=== PATIENT | male | born 1975 | race Caucasian/White ===

== ENCOUNTER 2017-10-08 15:08 | Inpatient (IN) | payer MEDICAID ==
[2017-10-08] MEDS ORDERED: Ondansetron 4 MG/2 ML SDV IVPUSH ONE (15:28)
[2017-10-08] MEDS ORDERED: Famotidine 20 MG/2 ML SDV IVPUSH ONE (15:28)
[2017-10-08] MEDS ORDERED: Pantoprazole 40 MG Vial IVPUSH ONE (15:28)
[2017-10-08] MEDS ORDERED: Lactated Ringers 1,000 ML IV ONE (15:28)
--- NOTE | 2017-10-08 15:28 | EDM.PDOC ---
ED HPI GENERAL MEDICAL PROBLEM - General Chief Complaint: Abdominal Pain Stated Complaint: Right abdomenal pain Time Seen by Provider: 10/08/17 15:20 Source of Information: Reports: Patient, Family (, son), Other (Limited records from [facility] in [place]). Denies: Old Records (No [facility] records available) History Limitations: Reports: No Limitations - History of Present Illness INITIAL COMMENTS - FREE TEXT/NARRATIVE: The patient was brought to the emergency room via private automobile by his for evaluation of 8-9/10 right upper quadrant sharp cramping abdominal pain similar to previous episodes with symptoms present on an intermittent basis during the last 3 weeks. The patient was briefly evaluated by Stephanie Alexis PA-C, at [facility] in [place], with no treatment or significant evaluation at clinic prior to transfer to our emergency room for further treatment. He does have a known history of distant pancreatitis and a pseudocyst as below. The patient has not taken any stomach medications for his symptoms to this point. Note that the patient did eat some pizza at noon yesterday with repeat piece of pizza later that afternoon and beginning symptoms at about 16:00 hours on that day with no known previous history of fatty food intolerance. He did have worsening symptoms since about noon today, including recurrent emesis since that time. The patient did take 650 mg of Tylenol shortly prior to onset of these of emeses. No recent history of other abdominal pain, heartburn, diarrhea, melena, gross hematochezia, etc. with normal bowel movement yesterday by his history. He denies any recent colic, gross hematuria, or other UTI symptoms. The patient also denies any recent fever , cough, wheezing, dyspnea, etc.. The patient denies any chest pain/pressure, heart flutter, dizziness, orthostasis, orthopnea, diaphoresis, paresthesias, recent decreased exercise tolerance, or any other anginal-type symptoms. The patient did have 2 beers yesterday evening. Onset: Gradual Onset Date: 10/07/17 Onset Time: 16:00 Duration: Week(s): (As above), Getting Worse, Intermittent Location: Reports: Abdomen. Denies: Head, Face, Neck, Chest, Back, Pelvis, Upper Extremity, Left, Upper Extremity, Right, Lower Extremity, Left, Lower Extremity, Right, Generalized, Radiates to Quality: Reports: Same as Previous Episode, Sharp, Stabbing Severity: Moderate Improves with: Reports: None Worsens with: Reports: None Context: Reports: Other (As above) Associated Symptoms: Reports: Nausea/Vomiting. Denies: Confusion, Chest Pain, Cough, cough w sputum, Diaphoresis, Fever/Chills, Headaches, Loss of Appetite, Malaise, Rash, Seizure, Shortness of Breath, Syncope, Weakness Treatments PUBLIC HEALTH OFFICER: Reports: Acetaminophen Right Abdominal Pain Score (Numeric/FACES): 9 - Related Data Allergies Allergy/AdvReac Type Severity Reaction Status Date / Time azithromycin [From Zithromax] Allergy Bleeding Verified 10/08/17 15:10 Home Meds: Home Meds Acetaminophen [Tylenol] 650 mg PO Q4HR PRN 10/08/17 [History] Ibuprofen 600 mg PO Q6HR 10/08/17 [History] Past Medical History HEENT History: Reports: Hard of Hearing, Impaired Vision, Other (See Below). Denies: Allergic Rhinitis, Glaucoma, Macular Degeneration, Retinal Detachment Other HEENT History: 10% hearing loss in the right ear with no current therapy. Patient does wear reading glasses Cardiovascular History: Reports: None. Denies: Afib, Aneurysm, Arrhythmia, Blood Clots/VTE/DVT, CAD, Heart Murmur, High Cholesterol, Hypertension, Syncope Respiratory History: Reports: None, Intubation, Previous. Denies: Asthma, Bronchitis, Recurrent, COPD, Intubation, Difficult, PE, Pneumothorax, Sleep Apnea, TB Gastrointestinal History: Reports: GERD, Pancreatitis, Other (See Below). Denies: Celiac Disease, Cholelithiasis, Chronic Constipation, Chronic Diarrhea, Fecal Incontinence, Gastritis, GI Bleed, Hepatitis, Helicobacter Pylori, Inflammatory Bowel Disease, Irritable Bowel Syndrome, Jaundice Other Gastrointestinal History: jaundice. Pancreatitis with pancreatic pseudocyst in about 2016 with previous referral for following up at the [facility], however this was apparently not needed based on communication with their providers in [place]? Previous history of possible lactose intolerance nonproblematic at this time Genitourinary History: Reports: None. Denies: Acute Renal Failure, BPH, Chronic Renal Insuffiency, Renal Calculus, STD, Urinary Incontinence, UTI, Recurrent Musculoskeletal History: Reports: Arthritis, Back Pain, Chronic, Fracture, Osteoarthritis, Other (See Below). Denies: Amputation, Gout, Neck Pain, Chronic , RA, SLE Other Musculoskeletal History: Left-sided rib fracture in about 2007 Neurological History: Reports: None. Denies: Cerebral Aneurysms, Concussion, CVA, Headaches, Chronic, Head Trauma, Migraines, MS, Parkinson's, Seizure, TIA Psychiatric History: Denies: Abuse, Victim of, ADD, ADHD, Addiction, Anxiety, Depression, Psych Hospitalization(s), Psychosis, PTSD, Suicide Attempt, Suicidal Ideation Endocrine/Metabolic History: Denies: Diabetes, Type I, Diabetes, Type II, Diabetes Mellitus, Type 3c, Hypothyroidism, IDDM Hematologic History: Reports: None. Denies: Anemia, Blood Transfusion(s) Immunologic History: Reports: None. Denies: AIDS, HIV, SLE Oncologic (Cancer) History: Denies: Basal Cell Carcinoma, Hodgkin's Lymphoma, Leukemia, Lymphoma, Malignant Melanoma, Non-Hodgkin's Lymphoma, Squamous Cell Carcinoma Dermatologic History: Denies: Eczema, Psoriasis - Infectious Disease History Infectious Disease History: Reports: Chicken Pox. Denies: C-Difficile, Measles , Meningitis, Mononucleosis, MRSA, Mumps, Pertussis (Whooping Cough), Rheumatic Fever, Rubella, Scarlet Fever, Shingles, TB, VRE - Past Surgical History Head Surgeries/Procedures: Reports: None HEENT Surgical History: Reports: Oral Surgery, Other (See Below). Denies: Adenoidectomy, Eye Surgery, Laser Surgery, LASIK, Myringotomy w Tube(s), Naso- Sinus Surgery, Tonsillectomy Other HEENT Surgeries/Procedures: Teeth extractions Cardiovascular Surgical History: Reports: None. Denies: Varicose, Vascular Surgery Respiratory Surgical History: Reports: None. Denies: Thoracentesis GI Surgical History: Reports: EGD, Hernia, Inguinal, Other (See Below). Denies : Appendectomy, Cholecystectomy, Colonoscopy, Hernia, Abdominal, Hernia Repair/ Other Other GI Surgeries/Procedures: Multiple previous EGDs with last EGD/EUS evaluation on 12/06/15. Right inguinal hernia repair at age 5 Male Surgical History: Reports: Circumcision, Other (See Below). Denies: Vasectomy Other Male Surgeries/Procedures: Circumcision as an infant Endocrine Surgical History: Reports: None. Denies: Thyroid Biopsy Neurological Surgical History: Denies: C-Spine, Discectomy, Laminectomy, Lumbar Spine, Sacral Spine, Scoliosis, Thoracic Spine, Vertebroplasty Musculoskeletal Surgical History: Denies: Arthroscopic Procedure, Carpal Tunnel , Ganglion Cyst, Joint Replacement, ORIF, Shoulder Surgery Oncologic Surgical History: Reports: None Dermatological Surgical History: Reports: None - Past Imaging History Past Imaging History: Reports: CAT Scan (CT scan of the abdomen and pelvis in about 2016), MRI (MRI of the abdomen and pelvis date unknown), Ultrasound ( Multiple previous abdominal ultrasounds date unknown) Social & Family History - Family History HEENT: Reports: None. Denies: Glaucoma, Macular Degeneration, Retinal Detachment Cardiac: Reports: CAD, DC, Other (See Below). Denies: Afib, Aneurysm, Arrhythmia, Blood Clots/VTE/DVT, Bypass, High Cholesterol, Hypertension, Pacemaker, Stent, Syncope Other Cardiac Family History: A paternal uncle with fatal DC at age 45 Respiratory: Reports: None. Denies: Asthma, COPD, PE, Pneumothorax, Sleep Apnea GI: Reports: GI bleed, PUD, Other (See Below). Denies: Celiac Disease, Cholelithiasis, Chronic Constipation, Chronic Diarrhea, Colon Polyps, GERD, Hepatitis, Inflammatory Bowel Disease, Irritable Bowel Syndrome, Pancreatitis Other GI Family History: Brother with upper GI bleed secondary to peptic ulcer disease. Son with history of H. pylori. : Reports: Renal Calculus, Other (See Below). Denies: Dialysis, Renal Disease /Insufficiency Other Family History: Father with urolithiasis OBGYN: Reports: None. Denies: Endometriosis, Recurrent Spontaneous Musculoskeletal: Reports: Arthritis, Osteoarthritis, SLE. Denies: Gout, RA Other Musculoskeletal Family History: Father with lupus Neurological: Reports: Alzheimers Disease, Other (See Below). Denies: Cerebral Aneurysms, CVA, Dementia, Migraines, MS, Parkinson's, Seizure, TIA Other Neurological Family History: Paternal grandfather with organic brain syndrome Psychiatric: Reports: None. Denies: Abuse, Victim of, ADD, ADHD, Anxiety, Depression, Psych Hospitalization(s), PTSD, Suicide Attempt Endocrine/Metabolic: Reports: Diabetes, type II. Denies: Diabetes, Type I, Diabetes Mellitus, Type 3c, Hypothyroidism, IDDM Other Endocrine/Metabolic Family History: Paternal grandfather with AODM Hematologic: Reports: SLE (As above). Denies: Anemia, Transfusion Reaction Immunologic: Reports: SLE (As above). Denies: AIDS, HIV Dermatologic: Reports: None. Denies: Eczema, Psoriasis Oncologic: Reports: Other (See Below). Denies: Colon, Hodgkin's Lymphoma, Leukemia, Lymphoma, Non-Hodgkin's Lymphoma, Prostate, Skin Other Oncologic Family History: Mother with fatal unknown type of cancer in her 50s - Tobacco Use Smoking Status *Q: Current Every Day Smoker Tobacco Use Within Last Twelve Months: Cigarettes Years of Tobacco use: 26 Packs/Tins Daily: 1 Used Tobacco, but Quit: No Smoking Cessation Information Provided To Patient: Yes Second Hand Smoke Exposure: Yes Source of Second Hand Smoke Exposure: smokes Second Hand Smoke Education Provided: Yes - Caffeine Use Caffeine Use: Reports: Coffee (2 cups per day), Energy Drinks (1 can per week), Tea (3 bottles per day). 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 ED EXAM, GI/ABD - Physical Exam Exam: See Below Exam Limited By: No Limitations General Appearance: Alert, WD/WN, No Apparent Distress Eyes: Bilateral: Normal Appearance (No nystagmus. No scleral icterus), EOMI ( PERRLA) Ears: Normal External Exam, Normal Canal, Hearing Grossly Normal, Normal TMs Nose: Normal Inspection, Normal Mucosa, No Blood Throat/Mouth: Normal Inspection, Normal Lips, Normal Teeth (Multiple missing teeth), Normal Gums, Normal Oropharynx, Normal Voice, No Airway Compromise. No : Dysphagia, Perioral Cyanosis Head: Atraumatic, Normocephalic. No: Facial Swelling, Facial Tenderness, Sinus Tenderness Neck: Normal Inspection, Supple, Non-Tender, Full Range of Motion. No: Carotid Bruit, Lymphadenopathy (L), Lymphadenopathy (R), Thyromegaly Respiratory/Chest: No Respiratory Distress, Lungs Clear, Normal Breath Sounds, No Accessory Muscle Use, Chest Non-Tender. No: Pleural Rub, Retractions Cardiovascular: Normal Peripheral Pulses, Regular Rate, Rhythm, No Edema, No Gallop, No JVD, No Murmur, No Rub. No: Gallop/S3, Gallop/S4, Friction Rub GI/Abdominal Exam: Normal Bowel Sounds, No Organomegaly, No Distention, No Abnormal Bruit, No Mass, Pelvis Stable, Tender (Moderate right upper quadrant palpation pain). No: Guarding, Rebound (Male) Exam: Deferred Rectal (Males) Exam: Normal Exam, Normal Rectal Tone, Prostate Normal, Heme - Stool. No: BPH, Tenderness (No Juan space tenderness) Back Exam: Normal Inspection, Full Range of Motion. No: CVA Tenderness (L), CVA Tenderness (R), Muscle Spasm Extremities: Normal Inspection, Normal Range of Motion, Non-Tender, No Pedal Edema, Normal Capillary Refill. No: Ray's Sign Neurological: Alert, Oriented, CN II-XII Intact, Normal Cognition, Normal Gait, Normal Reflexes, No Motor/Sensory Deficits Psychiatric: Normal Affect, Normal Mood Skin Exam: Warm, Dry, Intact, Normal Color, No Rash, Stud(s) (tongue), Tattoo(s ) (Multiple). No: Diaphoretic, Ecchymosis, Lymphangitis, Petechiae, Wound/ Incision Lymphatic: No Adenopathy Course - Vital Signs Last Recorded V/S: Last Vital Signs Temp 37.1 C 10/08/17 15:26 Pulse 80 10/08/17 15:26 Resp 20 10/08/17 15:26 BP 137/83 10/08/17 15:26 Pulse Ox 100 10/08/17 15:26 Vital Signs - 24 hr 10/08/17 10/08/17 15:18 15:26 Temperature [ 37.1 C 37.1 C Temporal] Pulse, 89 80 Peripheral [ Right Pulse Oximetry] Respiratory 20 20 Rate Blood Pressure 130/82 137/83 [Right Upper Arm] O2 Sat by Pulse 100 100 Oximetry - Orders/Labs/Meds Orders: Active Orders 24 hr Category Date Time Status Peripheral IV Care [RC] . DIRECTED Care 10/08/17 15:30 Active Nothing Per Oral Diet [DIET] Diet 10/08/17 Breakfast Active Abdomen Series w Chest 1V [CR] Stat Exams 10/08/17 15:29 Ordered CULTURE URINE [RM] Stat Lab 10/08/17 15:29 Ordered H PYLORI STOOL ANTIGEN [MREF] Urgent Lab 10/08/17 15:29 Ordered UA W/MICROSCOPIC [URIN] Urgent Lab 10/08/17 15:29 Ordered Sodium Chloride 0.9% [Saline Flush] Med 10/08/17 15:28 Active 10 ml FLUSH ASDIRECTED PRN Obtain Past Medical Record [OM.PC] Urgent Oth 10/08/17 15:29 Active Peripheral IV Insertion Adult [OM.PC] Stat Oth 10/08/17 15:29 Ordered Resuscitation Status Stat Resus Stat 10/08/17 15:28 Ordered Medication Orders Sodium Chloride (Saline Flush) 10 ml FLUSH ASDIRECTED PRN PRN Reason: Keep Vein Open Last Admin: 10/08/17 15:42 Dose: 10 ml Admin: 10/08/17 15:37 Dose: 10 ml Labs: Laboratory Tests 10/08/17 10/08/17 10/08/17 Range/Units 15:30 15:30 15:30 WBC 13.9 H (4.0-10.2) K/uL RBC 5.27 (4.33-5.41) M/uL Hgb 16.8 (13.1-16.8) g/dL Hct 47.4 (39.0-49.0) % MCV 89.9 (84.0-98.0) fL MCH 31.9 (28.2-33.3) pg MCHC 35.4 (31.7-36.0) g/dL RDW 11.9 (11.2-14.1) % Plt Count 278 (150-350) K/uL Neut % (Auto) 79.5 (45.0-80.0) % Lymph % (Auto) 9.8 L (10.0-50.0) % [place] % (Auto) 7.8 (2.0-14.0) % Eos % (Auto) 2.8 (0.0-5.0) % Baso % (Auto) 0.1 (0.0-2.0) % Neut # (Auto) 11.02 H (1.40-7.00) K/uL Lymph # (Auto) 1.36 (0.50-3.50) K/uL [place] # (Auto) 1.08 H (0.00-1.00) K/uL Eos # (Auto) 0.39 (0.00-0.50) K/uL Baso # (Auto) 0.02 (0.00-0.20) K/uL PT 10.1 (9.8-11.7) SEC INR 0.9 APTT 26.0 (22.1-29.8) SEC Sodium (136-145) mmol/L Potassium (3.5-5.1) mmol/L Chloride (98-107) mmol/L Carbon Dioxide (21.0-32.0) mmol/L BUN (7-18) mg/dL Creatinine (0.51-1.17) mg/dL Est Cr Clr Drug Dosing mL/min Estimated GFR (MDRD) mL/min Glucose (74-106) mg/dL Lactic Acid (0.4-2.0) mmol/L Uric Acid (2.6-7.2) mg/dL Calcium (8.5-10.1) mg/dL Magnesium (1.8-2.4) mg/dL Total Bilirubin (0.2-1.0) mg/dL AST (15-37) U/L ALT (12-78) U/L Alkaline Phosphatase (46-116) IU/L Total Protein (6.4-8.2) g/dL Albumin (3.4-5.0) g/dL Amylase 917 H (25-115) U/L Lipase (73-393) U/L Ethyl Alcohol (0.000-0.080) g/dL 10/08/17 10/08/17 Range/Units 15:30 15:30 WBC (4.0-10.2) K/uL RBC (4.33-5.41) M/uL Hgb (13.1-16.8) g/dL Hct (39.0-49.0) % MCV (84.0-98.0) fL MCH (28.2-33.3) pg MCHC (31.7-36.0) g/dL RDW (11.2-14.1) % Plt Count (150-350) K/uL Neut % (Auto) (45.0-80.0) % Lymph % (Auto) (10.0-50.0) % [place] % (Auto) (2.0-14.0) % Eos % (Auto) (0.0-5.0) % Baso % (Auto) (0.0-2.0) % Neut # (Auto) (1.40-7.00) K/uL Lymph # (Auto) (0.50-3.50) K/uL [place] # (Auto) (0.00-1.00) K/uL Eos # (Auto) (0.00-0.50) K/uL Baso # (Auto) (0.00-0.20) K/uL PT (9.8-11.7) SEC INR APTT (22.1-29.8) SEC Sodium 138 (136-145) mmol/L Potassium 3.9 (3.5-5.1) mmol/L Chloride 99 (98-107) mmol/L Carbon Dioxide 27.3 (21.0-32.0) mmol/L BUN 5 L (7-18) mg/dL Creatinine 0.75 (0.51-1.17) mg/dL Est Cr Clr Drug Dosing 123.03 mL/min Estimated GFR (MDRD) > 60 mL/min Glucose 116 H (74-106) mg/dL Lactic Acid 1.0 (0.4-2.0) mmol/L Uric Acid 4.2 (2.6-7.2) mg/dL Calcium 9.6 (8.5-10.1) mg/dL Magnesium 1.7 L (1.8-2.4) mg/dL Total Bilirubin 0.6 (0.2-1.0) mg/dL AST 63 H (15-37) U/L ALT 106 H (12-78) U/L Alkaline Phosphatase 101 (46-116) IU/L Total Protein 8.4 H (6.4-8.2) g/dL Albumin 4.1 (3.4-5.0) g/dL Amylase (25-115) U/L Lipase 5136 H (73-393) U/L Ethyl Alcohol 0.000 (0.000-0.080) g/dL Microbiology 10/08/17 15:58 Stool Occult Blood (SHAKILA) - Final Stool / Feces NEGATIVE OCCULT BLOOD Meds: Medications Generic Name Dose Route Start Last Admin Trade Name Salq PRN Reason Stop Dose Admin Sodium Chloride 10 ml 10/08/17 15:28 10/08/17 15:42 Saline Flush FLUSH 10 ml ASDIRECTED PRN Administration Keep Vein Open Discontinued Medications Generic Name Dose Route Start Last Admin Trade Name Nanci PRN Reason Stop Dose Admin Famotidine 40 mg 10/08/17 15:28 10/08/17 15:40 Pepcid IVPUSH 10/08/17 15:29 40 mg ONETIME ONE Administration Lactated Ringer's 1,000 mls @ 999 mls/hr 10/08/17 15:28 10/08/17 15:45 Ringers, Lactated IV 10/08/17 16:28 999 mls/hr .BOLUS ONE Administration Ondansetron HCl 4 mg 10/08/17 15:28 10/08/17 15:37 Zofran IVPUSH 10/08/17 15:29 4 mg ONETIME ONE Administration Pantoprazole Sodium 40 mg 10/08/17 15:28 10/08/17 15:42 Protonix Iv IVPUSH 10/08/17 15:29 40 mg ONETIME ONE Administration - Radiology Interpretation Free Text/Narrative:: Acute abdominal series was normal with no evidence of cardiomegaly, CHF, pulmonary infiltrates, pneumothorax, increased bowel gaseous pattern, free air, fluid levels, ileus, or obstruction Departure - Departure Time of Disposition: 16:40 Disposition: Admitted As Inpatient 65 Condition: Fair Clinical Impression: Pancreatitis, Elevated LFTs, Peptic reflux disease, Osteoarthritis, Hypomagnesemia, Tobacco abuse counseling, Hyperglycemia - Discharge Information Referrals: Stephanie Resendiz PA-C [Primary Care Provider] - Forms: ED Department Discharge Care Plan Goals: See plan - Problem List & Annotations (1) Pancreatitis SNOMED Code(s): 72385685 Code(s): K85.90 - ACUTE PANCREATITIS WITHOUT NECROSIS OR INFECTION, UNSP Status: Acute Priority: High Current Visit: Yes Onset Date: 10/08/17 Annotation/Comment:: Recurrence of his previous pancreatitis as above with previous history of pseudocyst. Improvement of patient's symptoms with high- dose IV Pepcid and IV Protonix in the emergency room. Patient will be kept nothing by mouth with repeat blood work in the a.m. with possible additional CT scan of the abdomen and pelvis depending on his clinical course as below. Also consider possible NG tube therapy depending on his clinical course. GI/surgical consultation as needed. Various therapeutic options were discussed with the patient and his , who are requesting admission to this facility for now. Note some mild leukocytosis at time of admission with IV Cipro and IV Flagyl to be started as GI prophylaxis. Qualifiers: Chronicity: acute Pancreatitis type: other Acute pancreatitis complication: unspecified Qualified Code(s): K85.80 - Other acute pancreatitis without necrosis or infection (2) Elevated LFTs SNOMED Code(s): 911427831 Code(s): R79.89 - OTHER SPECIFIED ABNORMAL FINDINGS OF BLOOD CHEMISTRY Status: Acute Priority: High Current Visit: Yes Onset Date: 10/08/17 Annotation/Comment:: Despite history of distant pancreatitis from a pancreatic pseudocyst no apparent previous history of LFTs elevation. Fasting lipid panel to be conducted in the a.m. Avoid excessive Tylenol and NSAIDs for now secondary to his LFTs elevation. His total bilirubin is normal. Abdominal ultrasound in the a.m. with possible substitution with CT scan of the abdomen and pelvis depending on his clinical course and a.m. blood work. Coagulation studies also to be conducted in the a.m. (3) Hyperglycemia SNOMED Code(s): 23150733 Code(s): R73.9 - HYPERGLYCEMIA, UNSPECIFIED Status: Acute Priority: Medium Current Visit: Yes Onset Date: 10/08/17 Annotation/Comment:: Glycosylated hemoglobin in the a.m. with no previous history of diabetes (4) Hypomagnesemia SNOMED Code(s): 779251943 Code(s): E83.42 - HYPOMAGNESEMIA Status: Acute Priority: Medium Current Visit: Yes Onset Date: 10/08/17 Annotation/Comment:: Consider magnesium oxide supplementation later in hospitalization (5) Osteoarthritis SNOMED Code(s): 841930969 Code(s): M19.90 - UNSPECIFIED OSTEOARTHRITIS, UNSPECIFIED SITE Status: Chronic Priority: Medium Current Visit: Yes Annotation/Comment:: Stable by history with no recent excessive NSAIDs, etc. use Qualifiers: Osteoarthritis location: multiple joints Osteoarthritis type: primary Qualified Code(s): M15.0 - Primary generalized (osteo)arthritis (6) Peptic reflux disease SNOMED Code(s): 16604263 Code(s): K21.9 - GASTRO-ESOPHAGEAL REFLUX DISEASE WITHOUT ESOPHAGITIS Status: Chronic Priority: Medium Current Visit: Yes Annotation/Comment:: Continue high-dose IV Pepcid and Protonix during hospitalization (7) Tobacco abuse counseling SNOMED Code(s): 880913106, 406326376 Code(s): Z71.6 - TOBACCO ABUSE COUNSELING Status: Chronic Priority: Medium Current Visit: Yes Annotation/Comment:: Tobacco cessation strongly encouraged for the patient and his with tobacco cessation information be provided at discharge - Problem List Review Problem List Initiated/Reviewed/Updated: Yes - My Orders Last 24 Hours: My Active Orders 10/08/17 15:28 Sodium Chloride 0.9% [Saline Flush] 10 ml FLUSH ASDIRECTED PRN Resuscitation Status Stat 10/08/17 15:29 Abdomen Series w Chest 1V [CR] Stat CULTURE URINE [RM] Stat H PYLORI STOOL ANTIGEN [MREF] Urgent UA W/MICROSCOPIC [URIN] Urgent Obtain Past Medical Record [OM.PC] Urgent Peripheral IV Insertion Adult [OM.PC] Stat 10/08/17 15:30 Peripheral IV Care [RC] . DIRECTED 10/08/17 Breakfast Nothing Per Oral Diet [DIET] - Assessment/Plan Admission H&P: Please use this note as an admission H&P Last 24 Hours: My Active Orders 10/08/17 15:28 Sodium Chloride 0.9% [Saline Flush] 10 ml FLUSH ASDIRECTED PRN Resuscitation Status Stat 10/08/17 15:29 Abdomen Series w Chest 1V [CR] Stat CULTURE URINE [RM] Stat H PYLORI STOOL ANTIGEN [MREF] Urgent UA W/MICROSCOPIC [URIN] Urgent Obtain Past Medical Record [OM.PC] Urgent Peripheral IV Insertion Adult [OM.PC] Stat 10/08/17 15:30 Peripheral IV Care [RC] . DIRECTED 10/08/17 Breakfast Nothing Per Oral Diet [DIET] Assessment:: As above Plan: As above. Extensive precautions were given to the patient and his , who are in agreement with the treatment plan. Tonny Azul M.D., at the [facility], assumes care in the a.m.. The patient will require about 3-4 days of inpatient/acute care secondary to multiple health problems as above.
[2017-10-08] MEDS: Sodium Chloride 0.9% 10 ML Syringe FLUSH PRN ×2 (15:37→15:42)
[2017-10-08 15:58] LABS: CHLORIDE,CL 99 mmol/L (98-107); SODIUM,NA 138 mmol/L (136-145)
[2017-10-08] MEDS ORDERED: fentaNYL 100 MCG/2 ML SDV IVPUSH PRN (17:00)
[2017-10-08] MEDS ORDERED: traMADol 50 MG Tab PO PRN (17:00)
[2017-10-08] MEDS: Ciprofloxacin in D5W 200 MG in Premix Bag 1 BAG IV SCH ×2 (17:57)
[2017-10-08] MEDS ORDERED: Acetaminophen 325 MG Tab PO PRN (18:00)
[2017-10-08] MEDS: Nicotine 21 MG/24 Hr Patch TRDERM SCH (18:29)
[2017-10-08] MEDS: metroNIDAZOLE/Normal Saline 500 MG in Premix Bag 1 BAG IV SCH (19:26)
[2017-10-08] MEDS ORDERED: Temazepam 15 MG Cap PO PRN (20:00)
[2017-10-08] MEDS: Sodium Chloride 0.9% 10 ML Syringe FLUSH SCH (20:14)
[2017-10-08] MEDS: D5 1/2 NS w/ 20 mEq/L KCl 1,000 ML IV SCH (20:15)
[2017-10-08] MEDS ORDERED: Ondansetron 4 MG/2 ML SDV IVPUSH PRN (22:00)
[2017-10-09] MEDS: metroNIDAZOLE/Normal Saline 500 MG in Premix Bag 1 BAG IV SCH ×3 (02:01→18:35)
[2017-10-09] MEDS: Ciprofloxacin in D5W 200 MG in Premix Bag 1 BAG IV SCH ×4 (05:37→17:19)
[2017-10-09] MEDS: Pantoprazole 40 MG Vial IVPUSH SCH ×2 (05:38→17:19)
[2017-10-09] MEDS: Sodium Chloride 0.9% 10 ML Syringe FLUSH PRN ×4 (05:49→23:04)
[2017-10-09 07:22] LABS: CHLORIDE,CL 105 mmol/L (98-107); SODIUM,NA 140 mmol/L (136-145)
[2017-10-09] MEDS ORDERED: Iopamidol 612 MG/ML 100 ML Bottle IVPUSH ONE (08:11)
[2017-10-09] MEDS: D5 1/2 NS w/ 20 mEq/L KCl 1,000 ML IV SCH (08:51)
[2017-10-09] MEDS: Sodium Chloride 0.9% 10 ML Syringe FLUSH SCH ×3 (08:51→19:46)
--- NOTE | 2017-10-09 15:01 | PCM.PN ---
- General Info Date of Service: 10/09/17 Functional Status: Reports: Pain Controlled - Review of Systems General: Reports: No Symptoms HEENT: Reports: No Symptoms Pulmonary: Reports: No Symptoms Cardiovascular: Reports: No Symptoms Gastrointestinal: Reports: Abdominal Pain (Mild right upper quadrant patient states muscular in nature) Genitourinary: Reports: No Symptoms Musculoskeletal: Reports: No Symptoms Skin: Reports: No Symptoms Neurological: Reports: No Symptoms - Patient Data Vitals - Most Recent: Last Vital Signs Temp 99.7 F 10/09/17 12:00 Pulse 69 10/09/17 12:00 Resp 16 10/09/17 08:00 BP 112/70 10/09/17 12:00 Pulse Ox 99 10/09/17 12:00 Weight - Most Recent: 147 lb 8.004 oz I&O - Last 24 Hours: Intake & Output 10/08/17 10/09/17 10/09/17 22:59 06:59 14:59 Intake Total 850 Output Total 1000 1650 Balance -1000 850 -1650 Lab Results Last 24 Hours: Laboratory Results - last 24 hr 10/08/17 10/09/17 10/09/17 Range/Units 17:00 06:30 06:30 WBC 9.1 (4.0-10.2) K/uL RBC 4.66 (4.33-5.41) M/uL Hgb 14.7 D (13.1-16.8) g/dL Hct 42.7 (39.0-49.0) % MCV 91.6 (84.0-98.0) fL MCH 31.5 (28.2-33.3) pg MCHC 34.4 (31.7-36.0) g/dL RDW 11.9 (11.2-14.1) % Plt Count 250 (150-350) K/uL Neut % (Auto) 62.0 (45.0-80.0) % Lymph % (Auto) 20.0 (10.0-50.0) % Moody % (Auto) 11.6 (2.0-14.0) % Eos % (Auto) 6.0 H (0.0-5.0) % Baso % (Auto) 0.4 (0.0-2.0) % Neut # (Auto) 5.61 (1.40-7.00) K/uL Lymph # (Auto) 1.81 (0.50-3.50) K/uL Moody # (Auto) 1.05 H (0.00-1.00) K/uL Eos # (Auto) 0.54 H (0.00-0.50) K/uL Baso # (Auto) 0.04 (0.00-0.20) K/uL PT (9.8-11.7) SEC INR APTT (22.1-29.8) SEC Sodium 140 (136-145) mmol/L Potassium 3.8 (3.5-5.1) mmol/L Chloride 105 (98-107) mmol/L Carbon Dioxide 25.1 (21.0-32.0) mmol/L BUN 6 L (7-18) mg/dL Creatinine 0.78 (0.51-1.17) mg/dL Est Cr Clr Drug Dosing 115.56 mL/min Estimated GFR (MDRD) > 60 mL/min Glucose 118 H (74-106) mg/dL Hemoglobin A1c (4.3-5.7) % Lactic Acid (0.4-2.0) mmol/L Calcium 8.7 (8.5-10.1) mg/dL Magnesium 1.5 L (1.8-2.4) mg/dL Total Bilirubin 0.5 (0.2-1.0) mg/dL AST 30 (15-37) U/L ALT 68 (12-78) U/L Alkaline Phosphatase 77 (46-116) IU/L Total Protein 6.8 (6.4-8.2) g/dL Albumin 3.2 L (3.4-5.0) g/dL Triglycerides 87 (30-150) mg/dL Cholesterol 149 (100-200) mg/dL LDL Cholesterol, Calc 92 (0-100) mg/dL HDL Cholesterol 40 (40-60) mg/dL Amylase 222 H (25-115) U/L Lipase 715 H (73-393) U/L Specimen Type Urincc Urine Color Yellow Urine Appearance Clear Urine pH 7.5 (5.0-9.0) Ur Specific [place] 1.015 (1.005-1.030) Urine Protein Negative (NEGATIVE) mg/dL Urine Glucose (UA) Negative (NEGATIVE) mg/dL Urine Ketones 40 H (NEGATIVE) mg/dL Urine Occult Blood Negative (NEGATIVE) Urine Nitrite Negative (NEGATIVE) Urine Bilirubin Negative (NEGATIVE) Urine Urobilinogen 0.2 (0.2-1.0) E.U./dL Ur Leukocyte Esterase Negative (NEGATIVE) Urine RBC 0-5 /HPF Urine WBC 0-5 /HPF Ur Epithelial Cells Rare /LPF Urine Bacteria Rare (NONE TO FEW) /HPF 10/09/17 10/09/17 10/09/17 Range/Units 06:30 06:30 06:30 WBC (4.0-10.2) K/uL RBC (4.33-5.41) M/uL Hgb (13.1-16.8) g/dL Hct (39.0-49.0) % MCV (84.0-98.0) fL MCH (28.2-33.3) pg MCHC (31.7-36.0) g/dL RDW (11.2-14.1) % Plt Count (150-350) K/uL Neut % (Auto) (45.0-80.0) % Lymph % (Auto) (10.0-50.0) % Moody % (Auto) (2.0-14.0) % Eos % (Auto) (0.0-5.0) % Baso % (Auto) (0.0-2.0) % Neut # (Auto) (1.40-7.00) K/uL Lymph # (Auto) (0.50-3.50) K/uL Moody # (Auto) (0.00-1.00) K/uL Eos # (Auto) (0.00-0.50) K/uL Baso # (Auto) (0.00-0.20) K/uL PT 10.9 (9.8-11.7) SEC INR 1.0 APTT 26.4 (22.1-29.8) SEC Sodium (136-145) mmol/L Potassium (3.5-5.1) mmol/L Chloride (98-107) mmol/L Carbon Dioxide (21.0-32.0) mmol/L BUN (7-18) mg/dL Creatinine (0.51-1.17) mg/dL Est Cr Clr Drug Dosing mL/min Estimated GFR (MDRD) mL/min Glucose (74-106) mg/dL Hemoglobin A1c 5.7 (4.3-5.7) % Lactic Acid 0.6 (0.4-2.0) mmol/L Calcium (8.5-10.1) mg/dL Magnesium (1.8-2.4) mg/dL Total Bilirubin (0.2-1.0) mg/dL AST (15-37) U/L ALT (12-78) U/L Alkaline Phosphatase (46-116) IU/L Total Protein (6.4-8.2) g/dL Albumin (3.4-5.0) g/dL Triglycerides (30-150) mg/dL Cholesterol (100-200) mg/dL LDL Cholesterol, Calc (0-100) mg/dL HDL Cholesterol (40-60) mg/dL Amylase (25-115) U/L Lipase (73-393) U/L Specimen Type Urine Color Urine Appearance Urine pH (5.0-9.0) Ur Specific [place] (1.005-1.030) Urine Protein (NEGATIVE) mg/dL Urine Glucose (UA) (NEGATIVE) mg/dL Urine Ketones (NEGATIVE) mg/dL Urine Occult Blood (NEGATIVE) Urine Nitrite (NEGATIVE) Urine Bilirubin (NEGATIVE) Urine Urobilinogen (0.2-1.0) E.U./dL Ur Leukocyte Esterase (NEGATIVE) Urine RBC /HPF Urine WBC /HPF Ur Epithelial Cells /LPF Urine Bacteria (NONE TO FEW) /HPF [place] Results Last 24 Hours: Microbiology 10/09/17 10:50 Stool Occult Blood (DELBERT) - Final Stool / Feces NEGATIVE OCCULT BLOOD Med Orders - Current: Current Medications Acetaminophen (Tylenol) 650 mg PO Q4H PRN PRN Reason: Pain Famotidine (Pepcid) 20 mg IVPUSH Q12H [facility] Fentanyl (Sublimaze) 50 mcg IVPUSH Q6H PRN PRN Reason: Pain (severe 7-10) Potassium Chloride/Dextrose/Sod Cl (D5 1/2 Ns W/ 20 Meq/L Kcl) 1,000 mls @ 100 mls/hr IV ASDIRECTED [facility] Last Admin: 10/09/17 08:51 Dose: 100 mls/hr Ciprofloxacin/Dextrose 200 mg/ (Premix) 100 mls @ 100 mls/hr IV Q12H [facility] Last Admin: 10/09/17 05:37 Dose: 100 mls/hr Metronidazole 500 mg/ Premix 100 mls @ 100 mls/hr IV Q8H [facility] Last Admin: 10/09/17 10:47 Dose: 100 mls/hr Miscellaneous Information (Remove Patch) 1 ea TRDERM QPM [facility] Nicotine (Habitrol) 21 mg TRDERM QPM [facility] Last Admin: 10/08/17 18:29 Dose: 21 mg Ondansetron HCl (Zofran) 4 mg IVPUSH Q6H PRN PRN Reason: Nausea/Vomiting Pantoprazole Sodium (Protonix Iv) 40 mg IVPUSH Q12H [facility] Last Admin: 10/09/17 05:38 Dose: 40 mg Sodium Chloride (Saline Flush) 10 ml FLUSH ASDIRECTED PRN PRN Reason: Keep Vein Open Last Admin: 10/09/17 12:35 Dose: 10 ml Sodium Chloride (Saline Flush) 10 ml FLUSH Q12HR [facility] Last Admin: 10/09/17 08:51 Dose: Not Given Temazepam (Restoril) 15 mg PO DAILY@2000 PRN PRN Reason: Insomnia Tramadol HCl (Ultram) 50 mg PO Q6H PRN PRN Reason: Pain (moderate 4-6) Discontinued Medications Famotidine (Pepcid) 40 mg IVPUSH ONETIME ONE Stop: 10/08/17 15:29 Last Admin: 10/08/17 15:40 Dose: 40 mg Lactated Ringer's (Ringers, Lactated) 1,000 mls @ 999 mls/hr IV .BOLUS ONE Stop: 10/08/17 16:28 Last Admin: 10/08/17 15:45 Dose: 999 mls/hr Ciprofloxacin/Dextrose 200 mg/ (Premix) 100 mls @ 100 mls/hr IV Q12H [facility] Metronidazole 500 mg/ Premix 100 mls @ 100 mls/hr IV Q8H [facility] Iopamidol (Isovue-300 (61%)) 100 ml IVPUSH ONETIME ONE Stop: 10/09/17 08:12 Last Admin: 10/09/17 11:04 Dose: 100 ml Ondansetron HCl (Zofran) 4 mg IVPUSH ONETIME ONE Stop: 10/08/17 15:29 Last Admin: 10/08/17 15:37 Dose: 4 mg Pantoprazole Sodium (Protonix Iv) 40 mg IVPUSH ONETIME ONE Stop: 10/08/17 15:29 Last Admin: 10/08/17 15:42 Dose: 40 mg - Exam General: Alert, Oriented HEENT: Pupils Equal, Pupils Reactive, EOMI, Mucous Membr. Moist/[place] Neck: Supple Lungs: Clear to Auscultation, Normal Respiratory Effort Cardiovascular: Regular Rate, Regular Rhythm GI/Abdominal Exam: Normal Bowel Sounds, Soft, No Abnormal Bruit, Pelvis Stable, Tender (Right upper quadrant) (Male) Exam: Deferred Back Exam: Normal Inspection, Full Range of Motion Extremities: Normal Inspection, Normal Range of Motion, Non-Tender, No Pedal Edema, Normal Capillary Refill Skin: Warm, Dry, Intact Wound/Incisions: Healing Well Neurological: No New Focal Deficit Psy/Mental Status: Alert, Normal Affect, Normal Mood - Problem List & Annotations (1) Pancreatitis SNOMED Code(s): 63036032 Code(s): K85.90 - ACUTE PANCREATITIS WITHOUT NECROSIS OR INFECTION, UNSP Status: Acute Priority: High Current Visit: Yes Onset Date: 10/08/17 Qualifiers: Chronicity: acute Pancreatitis type: other Acute pancreatitis complication: unspecified Qualified Code(s): K85.80 - Other acute pancreatitis without necrosis or infection Annotation/Comment:: Symptoms and labs improving patient will be started on diet and advance as tolerated check labs tomorrow with possible discharge CAT scan of the abdomen revealed mild pancreatitis. - Problem List Review Problem List Initiated/Reviewed/Updated: Yes - My Orders Last 24 Hours: My Active Orders 10/09/17 Dinner Clear Liquid Diet [DIET]
[2017-10-09] MEDS ORDERED: metroNIDAZOLE/Normal Saline 500 MG in Premix Bag 1 BAG IV SCH (17:00)
[2017-10-09] MEDS: Famotidine 20 MG/2 ML SDV IVPUSH SCH (17:19)
[2017-10-09] MEDS ORDERED: Remove Patch **NICOTINE TRDERM SCH (18:00)
[2017-10-09] MEDS ORDERED: Ciprofloxacin in D5W 200 MG in Premix Bag 1 BAG IV SCH ×2 (18:00)
[2017-10-09] MEDS: Nicotine 21 MG/24 Hr Patch TRDERM SCH (18:36)
[2017-10-10] MEDS: metroNIDAZOLE/Normal Saline 500 MG in Premix Bag 1 BAG IV SCH ×2 (02:00→10:42)
[2017-10-10] MEDS: Sodium Chloride 0.9% 10 ML Syringe FLUSH PRN ×5 (02:05→10:42)
[2017-10-10] MEDS: Famotidine 20 MG/2 ML SDV IVPUSH SCH (05:40)
[2017-10-10] MEDS: Pantoprazole 40 MG Vial IVPUSH SCH (05:42)
[2017-10-10] MEDS: Ciprofloxacin in D5W 200 MG in Premix Bag 1 BAG IV SCH ×2 (05:56)
[2017-10-10] MEDS: Sodium Chloride 0.9% 10 ML Syringe FLUSH SCH (10:48)
--- NOTE | 2017-10-10 11:42 | PCM.DCSUM1 ---
Discharge Summary - Discharge Data Discharge Date: 10/10/17 Discharge Disposition: Home, Self-Care 01 Condition: Good - Discharge Diagnosis/Problem(s) (1) Pancreatitis SNOMED Code(s): 66218079 ICD Code: K85.90 - ACUTE PANCREATITIS WITHOUT NECROSIS OR INFECTION, UNSP Status: Acute Priority: High Current Visit: Yes Onset Date: 10/08/17 Problem Details: Symptoms and labs improving patient will be started on diet and advance as tolerated check labs tomorrow with possible discharge CAT scan of the abdomen revealed mild pancreatitis. Qualifiers: Chronicity: acute Pancreatitis type: other Acute pancreatitis complication: unspecified Qualified Code(s): K85.80 - Other acute pancreatitis without necrosis or infection - Patient Instructions Diet: Heart Healthy Diet (Low-fat) Activity: As Tolerated Driving: May Drive Today Showering/Bathing: May Shower Notify Provider of: Fever, Increased Pain, Nausea and/or Vomiting - Discharge Plan Home Medications: Home Meds Acetaminophen [Tylenol] 650 mg PO Q4HR PRN 10/08/17 [History] Ibuprofen 600 mg PO Q6HR 10/08/17 [History] Forms: ED Department Discharge Referrals: Stephanie Resendiz PA-C [Physician [employer]] - - Discharge Summary/Plan Comment Discharge Summary/Plan Comment: Patient is a 42-year-old with known history of hepatitis admitted with hepatitis being the last couple days his amylase and lipase have dropped he is feeling symptom-free tolerating diet and would like to go home I feel that it is appropriate to send him home at this time - Patient Data Vitals - Most Recent: Last Vital Signs Temp 98.4 F 10/09/17 16:00 Pulse 70 10/09/17 16:00 Resp 16 10/09/17 08:00 BP 115/75 10/09/17 16:00 Pulse Ox 983 H 10/09/17 16:00 Weight - Most Recent: 146 lb 11.2 oz I&O - Last 24 hours: Intake & Output 10/09/17 10/10/17 10/10/17 22:59 06:59 14:59 Intake Total 100 978 Output Total 300 1050 Balance -200 -72 Lab Results - Last 24 hrs: Laboratory Results - last 24 hr 10/09/17 Range/Units 21:43 POC Glucose 116 H (65-110) mg/dl SHAKILA Results - Last 24 hrs: Microbiology 10/08/17 17:00 Urine Culture - Final Urine, Clean Catch NO GROWTH AFTER 2 DAYS 10/09/17 10:50 Stool Occult Blood (SHAKILA) - Final Stool / Feces NEGATIVE OCCULT BLOOD Med Orders - Current: Current Medications Acetaminophen (Tylenol) 650 mg PO Q4H PRN PRN Reason: Pain Famotidine (Pepcid) 20 mg IVPUSH Q12H [facility] Last Admin: 10/10/17 05:40 Dose: 20 mg Fentanyl (Sublimaze) 50 mcg IVPUSH Q6H PRN PRN Reason: Pain (severe 7-10) Ciprofloxacin/Dextrose 200 mg/ (Premix) 100 mls @ 100 mls/hr IV Q12H [facility] Last Admin: 10/10/17 05:56 Dose: 100 mls/hr Metronidazole 500 mg/ Premix 100 mls @ 100 mls/hr IV Q8H [facility] Last Admin: 10/10/17 10:42 Dose: 100 mls/hr Miscellaneous Information (Remove Patch) 1 ea TRDERM QPM [facility] Last Admin: 10/09/17 18:36 Dose: 1 ea Nicotine (Habitrol) 21 mg TRDERM QPM [facility] Last Admin: 10/09/17 18:36 Dose: 21 mg Ondansetron HCl (Zofran) 4 mg IVPUSH Q6H PRN PRN Reason: Nausea/Vomiting Pantoprazole Sodium (Protonix Iv) 40 mg IVPUSH Q12H [facility] Last Admin: 10/10/17 05:42 Dose: 40 mg Sodium Chloride (Saline Flush) 10 ml FLUSH ASDIRECTED PRN PRN Reason: Keep Vein Open Last Admin: 10/10/17 10:42 Dose: 10 ml Sodium Chloride (Saline Flush) 10 ml FLUSH Q12HR [facility] Last Admin: 10/10/17 10:48 Dose: Not Given Temazepam (Restoril) 15 mg PO DAILY@2000 PRN PRN Reason: Insomnia Tramadol HCl (Ultram) 50 mg PO Q6H PRN PRN Reason: Pain (moderate 4-6) Discontinued Medications Famotidine (Pepcid) 40 mg IVPUSH ONETIME ONE Stop: 10/08/17 15:29 Last Admin: 10/08/17 15:40 Dose: 40 mg Lactated Ringer's (Ringers, Lactated) 1,000 mls @ 999 mls/hr IV .BOLUS ONE Stop: 10/08/17 16:28 Last Admin: 10/08/17 15:45 Dose: 999 mls/hr Ciprofloxacin/Dextrose 200 mg/ (Premix) 100 mls @ 100 mls/hr IV Q12H [facility] Potassium Chloride/Dextrose/Sod Cl (D5 1/2 Ns W/ 20 Meq/L Kcl) 1,000 mls @ 100 mls/hr IV ASDIRECTED [facility] Last Admin: 10/09/17 08:51 Dose: 100 mls/hr Metronidazole 500 mg/ Premix 100 mls @ 100 mls/hr IV Q8H [facility] Iopamidol (Isovue-300 (61%)) 100 ml IVPUSH ONETIME ONE Stop: 10/09/17 08:12 Last Admin: 10/09/17 11:04 Dose: 100 ml Ondansetron HCl (Zofran) 4 mg IVPUSH ONETIME ONE Stop: 10/08/17 15:29 Last Admin: 10/08/17 15:37 Dose: 4 mg Pantoprazole Sodium (Protonix Iv) 40 mg IVPUSH ONETIME ONE Stop: 10/08/17 15:29 Last Admin: 10/08/17 15:42 Dose: 40 mg *Q Meaningful Use (DIS) - VTE *Q VTE Criteria *Q: - Stroke *Q Stroke Criteria *Q: - AMI *Q AMI Criteria *Q:
[2017-10-10] MEDS ORDERED: Non-Formulary Medication 1 Each (Acetaminophen [Tylenol] 650 MG) PO PRN (11:47)
[2017-10-10] MEDS ORDERED: IBUPROFEN 600 MG PO SCH (16:00)
== END 2017-10-10 12:28 | disposition home or self-care (01) | DRG 440 ==
LOC: LL.ED 15:08 → LL.MS 16:17
PROVIDERS: ADMIT Family Medicine; ATTEND Family Medicine
DX: K85.90 Acute pancreatitis without necrosis or infection, unspecified (principal); R79.89 Other specified abnormal findings of blood chemistry; R73.9 Hyperglycemia, unspecified; E83.42 Hypomagnesemia; M19.90 Unspecified osteoarthritis, unspecified site; K21.9 Gastro-esophageal reflux disease without esophagitis; F17.210 Nicotine dependence, cigarettes, uncomplicated; Z88.1 Allergy status to other antibiotic agents
CPT/HCPCS: 36415; 74022; 80053; 82150; 82272; 83605; 83690; 83735; 84550; 85025; 85610; 85730; 96374; 96375; 99285; C9113; G0480; J2405; J7050 ×2; J7120; 74177; 80061; 81001; 82962; 83036; 87086; 87338; A9270-GY; J0744; J3480; Q9967; S0028